=== PATIENT | female | born 1930 | race Caucasian/White ===

== ENCOUNTER 2019-07-08 17:25 | Emergency (ER) | payer MEDICARE, OTHER ==
[~2019-07-08] VITALS: Ht 172.7 cm; Wt 60.0 kg
[~2019-07-08 17:25] MED LIST: POTA20TA19 PO
[2019-07-08] MEDS ORDERED: ipratropium/albuterol 3ml nebule NEB ONE (17:55)
[2019-07-08] MEDS ORDERED: predniSONE 20 mg tablet PO ONE (17:55)
[2019-07-08 18:24] LABS: BASOPHILS % (AUTO) 0.4 % (0-1); EOSINOPHILS # (AUTO) 0.1 X10'3 (0-0.9); EOSINOPHILS % (AUTO) 1.6 % (0-6); HEMATOCRIT 37.6 % (35.0-45.0); HEMOGLOBIN 12.2 g/dl (12.0-16.0); LYMPHOCYTES # (AUTO) 0.9 X10'3 (1.1-4.8); LYMPHOCYTES % (AUTO) 10.8 % (21-51); MEAN CORPUSCULAR HEMOGLOBIN 30.7 PG (27.0-31.0); MEAN CORPUSCULAR HGB CONC 32.4 g/dL (33.0-36.5); MEAN CORPUSCULAR VOLUME 94.8 FL (78-98); MEAN PLATELET VOLUME 8.5 FL (7.4-10.4); MONOCYTES # (AUTO) 0.7 X10'3 (0-0.9); MONOCYTES % (AUTO) 8.3 % (2-12); NEUTROPHILS # (AUTO) 6.4 X10'3 (1.8-7.7); NEUTROPHILS % (AUTO) 78.9 % (42-75); PLATELET COUNT 290 X10'3 (140-440); RED BLOOD COUNT 3.97 X10'6 (4.20-5.60); RED CELL DISTRIBUTION WIDTH 13.5 % (11.5-14.5); WHITE BLOOD COUNT 8.2 X10'3 (4.5-11.0)
--- NOTE | 2019-07-08 18:25 | NUR ---
RECEIVED PT SITTING UP RIGHT, EKG COMPLETED. AWAITING BREATHING TREATMENT. O2 SATS AT 99 % ON 3 LITERS PER NC BREEATHING UNLABORED , LUNGS WITH BILATERAL RALES AND A PRODUCTIVE COUGH IS NOTED. RR 26 HR 85 BP 176/85 WILL CONTINUE TO MONITER . PLAN OF CARE UPDTED DAUGHTER AT THE BEDSIDE ATTENTIVE
[2019-07-08 18:37] LABS: ALANINE AMINOTRANSFERASE 18 U/L (12-78); ALBUMIN/GLOBULIN RATIO 0.6 (1.1-1.5); ALKALINE PHOSPHATASE 80 IU/L (46-116); ANION GAP 7 (8-16); ASPARTATE AMINO TRANSFERASE 22 U/L (10-37); BILIRUBIN,TOTAL 0.2 MG/DL (0.1-1.0); BLOOD UREA NITROGEN 15 MG/DL (7-18); BUN/CREATININE RATIO 17.6 (6.6-38.0); CALCIUM 9.4 MG/DL (8.5-10.1); CHLORIDE 101 MMOL/L (99-107); CREATININE 0.85 MG/DL (0.40-0.90); GLUCOSE 113 MG/DL (70-104); POTASSIUM 4.3 MMOL/L (3.5-5.1); SODIUM 139 MMOL/L (135-145); TOTAL CARBON DIOXIDE 30.9 MMOL/L (24-32); TOTAL PROTEIN 7.8 G/DL (6.4-8.2); eGFR 63 ML/MIN
[2019-07-08] MEDS ORDERED: azithromycin 250mg tablet PO ONE (18:40)
--- NOTE | 2019-07-08 18:48 | NUR ---
resp paged for tx
[2019-07-08] MEDS ORDERED: albuterol 2.5 MG/3 ML nebule CONTNEB PRN (19:00)
[2019-07-08] MEDS ORDERED: ipratropium 0.5 MG/2.5ML nebule IH ONE (19:00)
--- NOTE | 2019-07-08 19:06 | NUR ---
RESP TO TX PT WITH BREATHING TX
--- NOTE | 2019-07-08 19:24 | NUR ---
URINE SPECIMAN SENT TO LAB
--- NOTE | 2019-07-08 19:50 | NUR ---
PT STILL ON CONTINOUS MED ANNY TX ALL VSS STABLE CALLED LAB TO ADD TROPONIN
--- NOTE | 2019-07-08 19:52 | NUR ---
lab running troponin from previous draw
[2019-07-08 20:05] LABS: TROPONIN I < 0.04 NG/ML (0.0-0.05)
--- NOTE | 2019-07-08 20:42 | NUR ---
DR SESAY REQUESTED PT DO A WALK AROUND THE UNIT TO ASSESS SOB AND DIZZINESS. PT UP OUT OF BED WITH SLIPERS AND PORTABLE O2 AT 3 LITERS.
--- NOTE | 2019-07-08 20:49 | NUR ---
PT AMBULATED HALLWAY TO REGISTRATTION AND BACK UPON RETURN SHE WAS SATING 91 % OR HER 3 L OF O2 PER NC. PRIOR TO WALK AT REST PT WAS SATING 97-98 % . PT DID HAVE INCREASED WORK OF BREATHING . R5R TO 28 . PT STATED AT HOME SHE DOESNT HAVE TO WALK FAR DISTANCE OUR WALK TO REGISTRATION . PT STATES " THE WALK FELT GOOD, IT WAS NICE TO GET MY CIRCULATION GOING,"
[2019-07-08 20:52] VITALS: BP 137/81
[2019-07-08] MEDS ORDERED: AZIT-63 PO (20:59)
[2019-07-08] MEDS ORDERED: PRED20TA PO (20:59)
== END 2019-07-08 21:45 | disposition home or self-care (01) ==
LOC: ER 17:26
DX: J44.1 Chronic obstructive pulmonary disease with (acute) exacerbation (principal); R07.89 Other chest pain; I10 Essential (primary) hypertension; Z99.81 Dependence on supplemental oxygen; Z88.0 Allergy status to penicillin; Z79.899 Other long term (current) drug therapy; Z79.2 Long term (current) use of antibiotics
CPT/HCPCS: 36415; 71046; 80053; 83605; 84484; 85025; 93005; 94644; 94760; 99285; J7512; 94640

== ENCOUNTER 2019-09-07 18:44 | Inpatient (IN) | payer MEDICARE, OTHER ==
[~2019-09-07] VITALS: Ht 170.2 cm; Wt 57.8 kg
[2019-09-07 18:00] VITALS: BP 110/70
[~2019-09-07 18:44] MED LIST changes: +PRED20TA PO
[2019-09-07 20:00] LABS: BASOPHILS % (AUTO) 0.4 % (0-1); EOSINOPHILS # (AUTO) 0.2 X10'3 (0-0.9); EOSINOPHILS % (AUTO) 1.9 % (0-6); HEMATOCRIT 37.9 % (35.0-45.0); HEMOGLOBIN 12.5 g/dl (12.0-16.0); LYMPHOCYTES # (AUTO) 1.2 X10'3 (1.1-4.8); MEAN CORPUSCULAR HEMOGLOBIN 31.1 PG (27.0-31.0); MEAN CORPUSCULAR HGB CONC 32.9 g/dL (33.0-36.5); MEAN CORPUSCULAR VOLUME 94.4 FL (78-98); MEAN PLATELET VOLUME 8.6 FL (7.4-10.4); MONOCYTES # (AUTO) 0.7 X10'3 (0-0.9); NEUTROPHILS # (AUTO) 6.8 X10'3 (1.8-7.7); NEUTROPHILS % (AUTO) 76.7 % (42-75); PLATELET COUNT 265 X10'3 (140-440); RED BLOOD COUNT 4.02 X10'6 (4.20-5.60); RED CELL DISTRIBUTION WIDTH 14.2 % (11.5-14.5); WHITE BLOOD COUNT 8.9 X10'3 (4.5-11.0)
[2019-09-07 20:14] LABS: ALANINE AMINOTRANSFERASE 19 U/L (12-78); ALBUMIN/GLOBULIN RATIO 0.8 (1.1-1.5); ALKALINE PHOSPHATASE 71 IU/L (46-116); ANION GAP 5 (8-16); ASPARTATE AMINO TRANSFERASE 19 U/L (10-37); BILIRUBIN,TOTAL 0.2 MG/DL (0.1-1.0); BLOOD UREA NITROGEN 23 MG/DL (7-18); BUN/CREATININE RATIO 27.4 (6.6-38.0); CALCIUM 9.1 MG/DL (8.5-10.1); CHLORIDE 104 MMOL/L (99-107); CREATININE 0.84 MG/DL (0.40-0.90); GLUCOSE 131 MG/DL (70-104); POTASSIUM 4.7 MMOL/L (3.5-5.1); SODIUM 138 MMOL/L (135-145); TOTAL CARBON DIOXIDE 28.9 MMOL/L (24-32); TOTAL PROTEIN 6.9 G/DL (6.4-8.2); eGFR 64 ML/MIN
[2019-09-07] MEDS ORDERED: diltiazem 5mg/ml 5ml inj. IV ONE (20:15)
[2019-09-07] MEDS ORDERED: aspirin 325mg tablet PO ONE (20:15)
[2019-09-07] MEDS ORDERED: diltiazem-D5W 125mg/125ml 125 ML IV SCH (20:15)
[2019-09-07] MEDS ORDERED: normal saline 1000ml 1,000 ML IV ONE (20:30)
[2019-09-07] MEDS: diltiazem-NS 100mg/100ml 100 ML IV SCH (20:31)
[2019-09-07] MEDS ORDERED: TIOT18CA3 (21:06)
[2019-09-07] MEDS ORDERED: ADV50250 (21:06)
[2019-09-07] MEDS ORDERED: LOSA50TA64 (21:06)
[2019-09-07 22:00] VITALS: BP 112/74
[2019-09-08] VITALS (11 sets, daily range): BP systolic 102–152; BP diastolic 58–91
[2019-09-08] MEDS ORDERED: potassium Cl 20 mEq SR tablet PO PRN ×2 (01:50)
[2019-09-08] MEDS ORDERED: potassium CL 10mEq/100ml bag 100 ML IV PRN ×2 (01:50)
[2019-09-08] MEDS ORDERED: ipratropium/albuterol 3ml nebule NEB PRN ×2 (01:50)
[2019-09-08] MEDS ORDERED: ondansetron/PF 4mg/2ml inj IV PRN (01:50)
[2019-09-08] MEDS ORDERED: acetaminophen 325mg tablet PO PRN (01:50)
[2019-09-08] MEDS ORDERED: magnesium Cl slow-release 64mg tablet PO PRN (01:50)
[2019-09-08] MEDS ORDERED: magnesium 4gm in 100ml NS 100 ML IV PRN (01:50)
[2019-09-08] MEDS ORDERED: magnesium 2GM in 50ml NS 50 ML IV PRN (01:50)
--- NOTE | 2019-09-08 06:10 | NUR ---
Problems reprioritized. Patient report given, questions answered & plan of care reviewed with ANAND Haney.
--- NOTE | 2019-09-08 07:09 | NUR ---
Patient in room PCU 3012. I have received report from ANAND Cabrera and had the opportunity to ask questions and assume patient care. Pt resting with eyes closed, rouses upon entry in pt's room. RR WNL, even, unlabored. No signs of distress. Bed is low/locked/SRx2, call light in reach. Will continue to monitor.
--- NOTE | 2019-09-08 07:18 | NUR ---
Patient in room PCU 3012. I have received report from ANAND escalante and had the opportunity to ask questions and assume patient care.
--- NOTE | 2019-09-08 07:30 | NUR ---
Problems reprioritized. Patient report given, questions answered & plan of care reviewed with Hallie MICHEL.
[2019-09-08] MEDS ORDERED: heparin, porcine 5000 units/ml vial SQ SCH (08:00)
[2019-09-08] MEDS: K and/or MAG REPLACEMENT MC SCH ×2 (08:00→19:16)
[2019-09-08] MEDS: levoFLOXACIN-Levaquin 500mg/D5 100 ML IV SCH (08:08)
[2019-09-08] MEDS ORDERED: mag hydrox/Alum hydrox/simeth 30ml oral suspension PO ONE (08:30)
--- NOTE | 2019-09-08 08:33 | NUR ---
[id number] MESSAGE: Madeline Files RM 3010M c/o Chest Pain. STAT EKG ordered ANAND Sterling ext [phone]. phoned back and cancelled EKG, but its already in progress. Order for Maalox, Protonix, and Toradol inj.
[2019-09-08] MEDS ORDERED: ketorolac trometh. 30mg/ml inj. IM ONE (08:35)
[2019-09-08] MEDS: diltiazem-NS 100mg/100ml 100 ML IV SCH (13:09)
--- NOTE | 2019-09-08 14:54 | NUR ---
Malnutrition consult: Pt on heart healthy diet documented with 100% PO intake of protein at breakfast however 0% PO intake of the rest of the meal. Pt and son seen at bedside, pt reports a good appetite and both pt and son report that pt usually eats 3 small meals a day. Pt reports she ate just less than half of her lunch tray today. Pt reports UBW of 117-120 lbs with wt 3-4 lb wt loss. Patient's current scaled wt is 117 lbs which is 100% of reported UBW. No reliable wt hx in EMR as past documented weights are pt stated. Patient's clavicle is very prominent however pt reports this is normal for her. No other visible fat or muscle wasting noted. Pt with no documented significant decrease in muscle strength or edema. Pt currently does not meet criteria for malnutrition. Pt provided with alternative heart healthy menu to optimize PO intake as well as RD contact information. Pt denies food allergies or difficulty chewing/swallowing. Pt reports some constipation however denies intervention at this time. Pt reports hx diverticulitis/osis but denies questions for nutrition therapy at this time. Will continue to follow. Addendum: 09/08/19 at [address] Amended: Links added.
--- NOTE | 2019-09-08 16:21 | NUR ---
[id number] MESSAGE: Pharmacy requesting reconciliation of home meds of 3012B Rose Mary Sterling, RN [phone]
--- NOTE | 2019-09-08 18:27 | NUR ---
Problems reprioritized. Patient report given, questions answered & plan of care reviewed with ANAND Varela.
[2019-09-08] MEDS ORDERED: FLUTICASONE SCH (20:00)
[2019-09-08] MEDS ORDERED: SALMETEROL SCH (20:00)
[2019-09-08] MEDS: apixaban 5mg tablet PO SCH (20:13)
[2019-09-08] MEDS: diltiazem 30mg tablet PO SCH (20:13)
[2019-09-08] MEDS ORDERED: ipratropium 0.5 MG/2.5ML nebule IH SCH (21:00)
[2019-09-08] MEDS ORDERED: Melatonin 3mg tablet PO PRN (23:35)
[2019-09-08] MEDS: ipratropium/albuterol 3ml nebule IH SCH (23:53)
[2019-09-08] MEDS: budesonide 0.5mg/2ml UD nebule IH SCH (23:54)
[2019-09-09 02:30] VITALS: BP 114/80
[2019-09-09] MEDS: diltiazem 30mg tablet PO SCH ×2 (02:59→08:59)
[2019-09-09] MEDS: ipratropium/albuterol 3ml nebule IH SCH ×3 (03:00→15:11)
--- NOTE | 2019-09-09 06:15 | NUR ---
Patient in room PCU 3012. I have received report from ANAND Varela and had the opportunity to ask questions and assume patient care.
[2019-09-09 06:45] LABS: BASOPHILS % (AUTO) 0.6 % (0-1); EOSINOPHILS # (AUTO) 0.1 X10'3 (0-0.9); EOSINOPHILS % (AUTO) 2.4 % (0-6); HEMATOCRIT 35.4 % (35.0-45.0); HEMOGLOBIN 11.6 g/dl (12.0-16.0); LYMPHOCYTES # (AUTO) 1.1 X10'3 (1.1-4.8); LYMPHOCYTES % (AUTO) 17.6 % (21-51); MEAN CORPUSCULAR HGB CONC 32.8 g/dL (33.0-36.5); MEAN CORPUSCULAR VOLUME 94.6 FL (78-98); MEAN PLATELET VOLUME 8.4 FL (7.4-10.4); MONOCYTES # (AUTO) 0.5 X10'3 (0-0.9); MONOCYTES % (AUTO) 8.1 % (2-12); NEUTROPHILS # (AUTO) 4.5 X10'3 (1.8-7.7); NEUTROPHILS % (AUTO) 71.3 % (42-75); PLATELET COUNT 237 X10'3 (140-440); RED BLOOD COUNT 3.74 X10'6 (4.20-5.60); RED CELL DISTRIBUTION WIDTH 13.9 % (11.5-14.5); WHITE BLOOD COUNT 6.3 X10'3 (4.5-11.0)
[2019-09-09 06:53] LABS: ALBUMIN 2.6 G/DL (3.4-5.0); ANION GAP 2 (8-16); BLOOD UREA NITROGEN 17 MG/DL (7-18); BUN/CREATININE RATIO 17.7 (6.6-38.0); CALCIUM 8.8 MG/DL (8.5-10.1); CHLORIDE 107 MMOL/L (99-107); CREATININE 0.96 MG/DL (0.40-0.90); GLUCOSE 83 MG/DL (70-104); MAGNESIUM 2.4 MG/DL (1.5-2.4); POTASSIUM 4.4 MMOL/L (3.5-5.1); SODIUM 143 MMOL/L (135-145); TOTAL CARBON DIOXIDE 33.9 MMOL/L (24-32); eGFR 55 ML/MIN
[2019-09-09 07:00] VITALS: BP 116/64
[2019-09-09] MEDS ORDERED: pantoprazole 40mg Tablet.DR PO SCH (07:30)
[2019-09-09] MEDS: K and/or MAG REPLACEMENT MC SCH (08:00)
[2019-09-09] MEDS: budesonide 0.5mg/2ml UD nebule IH SCH (08:24)
[2019-09-09] MEDS: levoFLOXACIN-Levaquin 500mg/D5 100 ML IV SCH (08:59)
[2019-09-09] MEDS: apixaban 5mg tablet PO SCH (08:59)
[2019-09-09] MEDS ORDERED: diltiazem CD 120mg capsule (once-daily) PO SCH (09:15)
[2019-09-09 11:00] VITALS: BP 109/61
[2019-09-09] MEDS ORDERED: CARCD120C PO (13:26)
[2019-09-09] MEDS ORDERED: APIX5TAB3 PO (13:26)
[2019-09-09 15:00] VITALS: BP 113/57
--- NOTE | 2019-09-09 17:05 | NUR ---
Patient stable for discharge per MD. Discharge instruction given to patient and patients daughter. New medications faxed to [facility] in [place]. Tele monitor removed and returned to telemetry technician. PIC d/c'd, catheter intact. Patient instructed to call and follow up with Dr. Gutierrez in 2-3 weeks. Patient transported off unit via wheel chair to private vehicle.
[2019-09-10] MEDS ORDERED: levoFLOXACIN 500mg tablet PO SCH (11:00)
== END 2019-09-09 17:03 | disposition home or self-care (01) | DRG 309 ==
LOC: ER 18:44 → PCU 3S 21:29 → CMPBEDREQ 09-08 12:18
PROVIDERS: ADMIT Internal Medicine; ATTEND Family Medicine
DX: I48.91 Unspecified atrial fibrillation (principal); J96.10 Chronic respiratory failure, unspecified whether with hypoxia or hypercapnia; E86.0 Dehydration; J44.9 Chronic obstructive pulmonary disease, unspecified; I10 Essential (primary) hypertension; Z87.891 Personal history of nicotine dependence; Z98.82 Breast implant status; Z99.81 Dependence on supplemental oxygen; Z88.0 Allergy status to penicillin
CPT/HCPCS: 36415; 71045; 80048; 80053; 83735; 84484; 85025; 93005; 93306; 94640; 94760; 96361; 96374; 99285; G0378; J1644; J1885; J1956; J3490; J7626

== ENCOUNTER 2019-11-27 21:18 | Inpatient (IN) | payer MEDICARE, OTHER ==
[~2019-11-27] VITALS: Ht 172.7 cm; Wt 53.6 kg
[~2019-11-27 21:18] MED LIST changes: +ADV50250; +APIX5TAB3 PO; +CARCD120C PO; -POTA20TA19 PO; -PRED20TA PO; +TIOT18CA3
[2019-11-27] MEDS ORDERED: ipratropium/albuterol 3ml nebule NEB ONE (21:40)
[2019-11-27 21:48] LABS: BASOPHILS # (AUTO) 0.1 X10'3 (0-0.2); BASOPHILS % (AUTO) 0.8 % (0-1); EOSINOPHILS # (AUTO) 0.1 X10'3 (0-0.9); EOSINOPHILS % (AUTO) 0.6 % (0-6); HEMATOCRIT 39.3 % (35.0-45.0); HEMOGLOBIN 12.9 g/dl (12.0-16.0); LYMPHOCYTES # (AUTO) 0.8 X10'3 (1.1-4.8); LYMPHOCYTES % (AUTO) 6.3 % (21-51); MEAN CORPUSCULAR HGB CONC 32.8 g/dL (33.0-36.5); MEAN CORPUSCULAR VOLUME 91.3 FL (78-98); MEAN PLATELET VOLUME 8.2 FL (7.4-10.4); MONOCYTES # (AUTO) 0.8 X10'3 (0-0.9); MONOCYTES % (AUTO) 6.3 % (2-12); NEUTROPHILS # (AUTO) 10.6 X10'3 (1.8-7.7); PLATELET COUNT 299 X10'3 (140-440); RED BLOOD COUNT 4.31 X10'6 (4.20-5.60); RED CELL DISTRIBUTION WIDTH 14.4 % (11.5-14.5); WHITE BLOOD COUNT 12.3 X10'3 (4.5-11.0)
[2019-11-27 22:02] LABS: PARTIAL THROMBOPLASTIN TIME 31 SECONDS (22-32)
[2019-11-27 22:08] LABS: ALANINE AMINOTRANSFERASE 32 U/L (12-78); ALBUMIN 3.6 G/DL (3.4-5.0); ALBUMIN/GLOBULIN RATIO 0.8 (1.1-1.5); ALKALINE PHOSPHATASE 94 IU/L (46-116); ANION GAP 5 (8-16); ASPARTATE AMINO TRANSFERASE 35 U/L (10-37); BILIRUBIN,TOTAL 0.3 MG/DL (0.1-1.0); BLOOD UREA NITROGEN 22 MG/DL (7-18); BUN/CREATININE RATIO 24.2 (6.6-38.0); CALCIUM 9.7 MG/DL (8.5-10.1); CHLORIDE 101 MMOL/L (99-107); CREATININE 0.91 MG/DL (0.40-0.90); GLUCOSE 149 MG/DL (70-104); POTASSIUM 4.7 MMOL/L (3.5-5.1); SODIUM 136 MMOL/L (135-145); eGFR 58 ML/MIN
--- NOTE | 2019-11-27 22:16 | NUR ---
EDSC DEMARCUS MADE AWARE OF PT CONTINUED HR OF 120'S AND CHEST PRESSURE. NO NEW ORDERS AT THIS TIME.
[2019-11-27] MEDS ORDERED: diltiazem 5mg/ml 5ml inj. IV ONE ×2 (22:25→22:40)
[2019-11-27] MEDS ORDERED: diltiazem 30mg tablet PO ONE (22:40)
[2019-11-28] MEDS ORDERED: normal saline 1000ml 1,000 ML IV SCH (01:46)
--- NOTE | 2019-11-28 01:47 | NUR ---
PT STATES SHE NORMALLY WEARS 4L O2 AT HOME.
[2019-11-28] MEDS ORDERED: mag hydrox/Alum hydrox/simeth 30ml oral suspension PO PRN (01:50)
[2019-11-28] MEDS ORDERED: ondansetron/PF 4mg/2ml inj IV PRN (01:50)
[2019-11-28] MEDS ORDERED: acetaminophen 325mg tablet PO PRN (01:50)
[2019-11-28 02:35] VITALS: BP 151/93
[2019-11-28] MEDS: ipratropium/albuterol 3ml nebule NEB SCH ×4 (02:40→20:49)
--- NOTE | 2019-11-28 04:01 | NUR ---
Patient came to the unit at around 0230. Alert, oriented, x4. SOB, Respiratory therapist in the room for breathing treatment. Not complaining of any pain at this time.
[2019-11-28 06:00] VITALS: BP 148/67
--- NOTE | 2019-11-28 06:13 | NUR ---
Problems reprioritized. Patient report given Tonya, questions answered & plan of care reviewed with .
--- NOTE | 2019-11-28 06:36 | NUR ---
Patient in room PCU 3014P. I have received report from Leigh MICHEL and had the opportunity to ask questions and assume patient care. Patient laying in bed, awake, anxious, able to answer questions, states "I am trying to calm down", reassurance and guidance provided. Will continue to monitor.
[2019-11-28] MEDS: apixaban 5mg tablet PO SCH ×2 (07:20→19:57)
[2019-11-28] MEDS: budesonide 0.5mg/2ml UD nebule IH SCH ×2 (07:43→20:49)
[2019-11-28] MEDS ORDERED: diltiazem CD 120mg capsule (once-daily) PO SCH (08:00)
[2019-11-28 11:00] VITALS: BP 154/99
[2019-11-28] MEDS ORDERED: diltiazem CD 120mg capsule (once-daily) PO ONE (12:55)
[2019-11-28] MEDS: lactose-reduced food (Ensure Enlive) - 237ml bottle PO SCH ×2 (13:00→19:18)
[2019-11-28 15:00] VITALS: BP 105/58
[2019-11-28 18:00] VITALS: BP 99/79
--- NOTE | 2019-11-28 18:27 | NUR ---
Problems reprioritized. Patient report given, questions answered & plan of care reviewed with Ramona MICHEL.
[2019-11-28 22:00] VITALS: BP 115/67
[2019-11-29 01:52] VITALS: BP 115/64
[2019-11-29] MEDS: ipratropium/albuterol 3ml nebule NEB SCH ×4 (04:25→20:37)
[2019-11-29 06:00] VITALS: BP_SYST 106; BP_SYST 119; BP_DIAS 60; BP_DIAS 73
--- NOTE | 2019-11-29 06:06 | NUR ---
Problems reprioritized. Patient report given, questions answered & plan of care reviewed with Patricia Nix
[2019-11-29 06:26] LABS: BASOPHILS # (AUTO) 0.1 X10'3 (0-0.2); BASOPHILS % (AUTO) 0.6 % (0-1); EOSINOPHILS # (AUTO) 0.2 X10'3 (0-0.9); EOSINOPHILS % (AUTO) 2.2 % (0-6); HEMATOCRIT 33.3 % (35.0-45.0); HEMOGLOBIN 11.1 g/dl (12.0-16.0); LYMPHOCYTES # (AUTO) 0.8 X10'3 (1.1-4.8); LYMPHOCYTES % (AUTO) 8.7 % (21-51); MEAN CORPUSCULAR HEMOGLOBIN 30.4 PG (27.0-31.0); MEAN CORPUSCULAR HGB CONC 33.4 g/dL (33.0-36.5); MEAN PLATELET VOLUME 8.6 FL (7.4-10.4); MONOCYTES # (AUTO) 0.7 X10'3 (0-0.9); MONOCYTES % (AUTO) 8.5 % (2-12); PLATELET COUNT 228 X10'3 (140-440); RED BLOOD COUNT 3.66 X10'6 (4.20-5.60); RED CELL DISTRIBUTION WIDTH 14.1 % (11.5-14.5); WHITE BLOOD COUNT 8.8 X10'3 (4.5-11.0)
--- NOTE | 2019-11-29 06:29 | NUR ---
Patient in room PCU 3018S. I have received report from Ramona MICHEL and had the opportunity to ask questions and assume patient care. Patient laying in bed, eyes closed, no signs of distress, will continue to monitor.
[2019-11-29 06:54] LABS: ALANINE AMINOTRANSFERASE 21 U/L (12-78); ALBUMIN 2.6 G/DL (3.4-5.0); ALBUMIN/GLOBULIN RATIO 0.7 (1.1-1.5); ALKALINE PHOSPHATASE 64 IU/L (46-116); ANION GAP 4 (8-16); ASPARTATE AMINO TRANSFERASE 23 U/L (10-37); BILIRUBIN,TOTAL 0.3 MG/DL (0.1-1.0); BLOOD UREA NITROGEN 17 MG/DL (7-18); BUN/CREATININE RATIO 20.5 (6.6-38.0); CALCIUM 9.2 MG/DL (8.5-10.1); CHLORIDE 106 MMOL/L (99-107); CHOL/HDL RATIO 2.4 (0.00-4.99); CHOLESTEROL 173 MG/DL (0-200); CREATININE 0.83 MG/DL (0.40-0.90); GLUCOSE 87 MG/DL (70-104); HDL CHOLESTEROL 73 MG/DL (35-60); LDL CHOLESTEROL 89 MG/DL (50-100); POTASSIUM 3.9 MMOL/L (3.5-5.1); SODIUM 142 MMOL/L (135-145); TOTAL CARBON DIOXIDE 32.5 MMOL/L (24-32); TOTAL PROTEIN 6.2 G/DL (6.4-8.2); TRIGLYCERIDES 43 MG/DL (20-135); eGFR 65 ML/MIN
[2019-11-29] MEDS: budesonide 0.5mg/2ml UD nebule IH SCH ×2 (07:42→20:37)
[2019-11-29] MEDS: magnesium hydroxide 30ml (MOM) UD suspension PO PRN (08:01)
[2019-11-29] MEDS: atorvastatin 10mg tablet PO SCH (08:01)
[2019-11-29] MEDS: aspirin 81mg tablet.DR PO SCH (08:02)
[2019-11-29] MEDS: diltiazem CD 120mg capsule (once-daily) PO SCH (08:02)
[2019-11-29] MEDS: lactose-reduced food (Ensure Enlive) - 237ml bottle PO SCH ×3 (08:02→19:00)
[2019-11-29] MEDS: apixaban 5mg tablet PO SCH ×2 (08:02→20:54)
--- NOTE | 2019-11-29 08:08 | NUR ---
I have reviewed and agree with all medications administered and interventions performed by [facility] Student(kaylan dan) Addendum: 11/29/19 at 0808 by Ce Rosales RT Amended: Links added.
[2019-11-29 11:00] VITALS: BP 119/70
--- NOTE | 2019-11-29 13:15 | NUR ---
PAGER ID: [phone] MESSAGE: Patricia x [phone]. RE [address] Fra[address] 3016B. Patient requesting Miralax for constipation, can I have an order for this? Thank you!
[2019-11-29 15:00] VITALS: BP 116/67
[2019-11-29 18:00] VITALS: BP 140/71
--- NOTE | 2019-11-29 18:19 | NUR ---
Problems reprioritized. Patient report given, questions answered & plan of care reviewed with Jennifer MICHEL.
--- NOTE | 2019-11-29 18:30 | NUR ---
Patient in room PCU 3016. I have received report from Patricia Nix RN and had the opportunity to ask questions and assume patient care.
[2019-11-29] MEDS: polyethylene glycol 3350 17gm powd pack PO SCH (20:54)
[2019-11-29 22:00] VITALS: BP 115/61
[2019-11-30 02:00] VITALS: BP 121/71
[2019-11-30] MEDS: ipratropium/albuterol 3ml nebule NEB SCH ×4 (02:29→21:44)
[2019-11-30 06:00] VITALS: BP 111/59
--- NOTE | 2019-11-30 06:15 | NUR ---
Problems reprioritized. Patient report given, questions answered & plan of care reviewed with Ptaricia Nix RN.
--- NOTE | 2019-11-30 06:36 | NUR ---
Patient in room PCU 3010Q. I have received report from Jennifer MICHEL and had the opportunity to ask questions and assume patient care.
[2019-11-30 07:01] LABS: BASOPHILS % (AUTO) 0.5 % (0-1); EOSINOPHILS # (AUTO) 0.2 X10'3 (0-0.9); EOSINOPHILS % (AUTO) 3.4 % (0-6); HEMATOCRIT 34.3 % (35.0-45.0); HEMOGLOBIN 11.3 g/dl (12.0-16.0); LYMPHOCYTES # (AUTO) 0.9 X10'3 (1.1-4.8); LYMPHOCYTES % (AUTO) 12.5 % (21-51); MEAN CORPUSCULAR HEMOGLOBIN 30.2 PG (27.0-31.0); MEAN CORPUSCULAR VOLUME 91.5 FL (78-98); MEAN PLATELET VOLUME 8.4 FL (7.4-10.4); MONOCYTES # (AUTO) 0.7 X10'3 (0-0.9); MONOCYTES % (AUTO) 10.5 % (2-12); NEUTROPHILS % (AUTO) 73.1 % (42-75); PLATELET COUNT 242 X10'3 (140-440); RED BLOOD COUNT 3.75 X10'6 (4.20-5.60); RED CELL DISTRIBUTION WIDTH 14.3 % (11.5-14.5); WHITE BLOOD COUNT 6.8 X10'3 (4.5-11.0)
[2019-11-30 07:05] LABS: ALANINE AMINOTRANSFERASE 21 U/L (12-78); ALBUMIN 2.7 G/DL (3.4-5.0); ALBUMIN/GLOBULIN RATIO 0.7 (1.1-1.5); ALKALINE PHOSPHATASE 72 IU/L (46-116); ANION GAP 4 (8-16); ASPARTATE AMINO TRANSFERASE 22 U/L (10-37); BILIRUBIN,TOTAL 0.3 MG/DL (0.1-1.0); BLOOD UREA NITROGEN 18 MG/DL (7-18); BUN/CREATININE RATIO 20.9 (6.6-38.0); CALCIUM 9.1 MG/DL (8.5-10.1); CHLORIDE 104 MMOL/L (99-107); CREATININE 0.86 MG/DL (0.40-0.90); GLUCOSE 95 MG/DL (70-104); POTASSIUM 4.1 MMOL/L (3.5-5.1); SODIUM 142 MMOL/L (135-145); TOTAL PROTEIN 6.4 G/DL (6.4-8.2); eGFR 62 ML/MIN
[2019-11-30] MEDS: budesonide 0.5mg/2ml UD nebule IH SCH ×2 (07:41→21:44)
[2019-11-30] MEDS: magnesium hydroxide 30ml (MOM) UD suspension PO PRN (08:56)
[2019-11-30] MEDS: diltiazem CD 120mg capsule (once-daily) PO SCH (08:57)
[2019-11-30] MEDS: aspirin 81mg tablet.DR PO SCH (08:57)
[2019-11-30] MEDS: atorvastatin 10mg tablet PO SCH (08:57)
[2019-11-30] MEDS: apixaban 5mg tablet PO SCH ×2 (08:57→20:56)
[2019-11-30] MEDS: lactose-reduced food (Ensure Enlive) - 237ml bottle PO SCH ×3 (08:59→18:47)
[2019-11-30 11:00] VITALS: BP 131/72
[2019-11-30 15:00] VITALS: BP 125/68
--- NOTE | 2019-11-30 15:39 | NUR ---
PAGER ID: [phone] MESSAGE: Patricia paul [phone]. Paras Frausto [id number]. Pt IV went bad. Does not have any running IV meds. May d/c to rehab tomorrow. Okay to not have an IV?
--- NOTE | 2019-11-30 17:00 | NUR ---
Per Dr. MARIZA boyd to not have PIV, gave order for Lasix 20mg PO BID.
--- NOTE | 2019-11-30 18:30 | NUR ---
went into patient room at shift change, patient complains of upper abdominal/epigastric spasm after eating food. Relaxation encouraged, no respiratory distress, speaking in full sentences, anxious. Guidance and reassurance provided, reported to Caroline MICHEL
--- NOTE | 2019-11-30 18:30 | NUR ---
Patient in room PCU 3016. I have received report from ANAND Gomez and had the opportunity to ask questions and assume patient care.
--- NOTE | 2019-11-30 18:31 | NUR ---
Problems reprioritized. Patient report given, questions answered & plan of care reviewed with Caroline MICHEL.
[2019-11-30 19:00] VITALS: BP 124/59
[2019-11-30] MEDS: furosemide 20MG tablet PO SCH (20:56)
[2019-11-30] MEDS: polyethylene glycol 3350 17gm powd pack PO SCH (21:00)
[2019-11-30] MEDS ORDERED: LORazepam 1 MG tablet PO ONE (21:20)
[2019-11-30] MEDS ORDERED: pantoprazole 40mg Tablet.DR PO ONE (21:20)
[2019-11-30] MEDS ORDERED: HYDROcodone/acetaminophen 5mg/325mg tablet PO ONE (22:40)
[2019-11-30 23:00] VITALS: BP 144/82
[2019-12-01 03:00] VITALS: BP 125/72
[2019-12-01] MEDS: ipratropium/albuterol 3ml nebule NEB SCH ×3 (03:00→14:43)
[2019-12-01 06:00] VITALS: BP 147/92
[2019-12-01 06:09] LABS: BASOPHILS % (AUTO) 0.6 % (0-1); EOSINOPHILS # (AUTO) 0.1 X10'3 (0-0.9); EOSINOPHILS % (AUTO) 1.1 % (0-6); HEMATOCRIT 35.8 % (35.0-45.0); HEMOGLOBIN 11.7 g/dl (12.0-16.0); LYMPHOCYTES # (AUTO) 0.7 X10'3 (1.1-4.8); MEAN CORPUSCULAR HGB CONC 32.8 g/dL (33.0-36.5); MEAN CORPUSCULAR VOLUME 91.4 FL (78-98); MEAN PLATELET VOLUME 8.5 FL (7.4-10.4); MONOCYTES # (AUTO) 0.6 X10'3 (0-0.9); MONOCYTES % (AUTO) 7.8 % (2-12); NEUTROPHILS # (AUTO) 6.8 X10'3 (1.8-7.7); NEUTROPHILS % (AUTO) 82.5 % (42-75); PLATELET COUNT 253 X10'3 (140-440); RED BLOOD COUNT 3.91 X10'6 (4.20-5.60); RED CELL DISTRIBUTION WIDTH 14.3 % (11.5-14.5); WHITE BLOOD COUNT 8.3 X10'3 (4.5-11.0)
[2019-12-01 06:21] LABS: ALANINE AMINOTRANSFERASE 21 U/L (12-78); ALBUMIN 2.7 G/DL (3.4-5.0); ALBUMIN/GLOBULIN RATIO 0.7 (1.1-1.5); ALKALINE PHOSPHATASE 71 IU/L (46-116); ANION GAP 3 (8-16); ASPARTATE AMINO TRANSFERASE 21 U/L (10-37); BILIRUBIN,TOTAL 0.2 MG/DL (0.1-1.0); BLOOD UREA NITROGEN 23 MG/DL (7-18); BUN/CREATININE RATIO 24.2 (6.6-38.0); CHLORIDE 105 MMOL/L (99-107); CREATININE 0.95 MG/DL (0.40-0.90); GLUCOSE 119 MG/DL (70-104); SODIUM 144 MMOL/L (135-145); TOTAL CARBON DIOXIDE 36.1 MMOL/L (24-32); TOTAL PROTEIN 6.5 G/DL (6.4-8.2); eGFR 56 ML/MIN
--- NOTE | 2019-12-01 06:23 | NUR ---
Problems reprioritized. Patient report given, questions answered & plan of care reviewed with ANAND Pettit.
--- NOTE | 2019-12-01 06:24 | NUR ---
Patient in room PCU 3016. I have received report from Caroline MICHEL and had the opportunity to ask questions and assume patient care.
[2019-12-01] MEDS: budesonide 0.5mg/2ml UD nebule IH SCH (07:00)
[2019-12-01] MEDS: lactose-reduced food (Ensure Enlive) - 237ml bottle PO SCH ×2 (08:00→13:43)
[2019-12-01] MEDS: aspirin 81mg tablet.DR PO SCH (08:45)
[2019-12-01] MEDS: apixaban 5mg tablet PO SCH (08:45)
[2019-12-01] MEDS: furosemide 20MG tablet PO SCH (08:46)
[2019-12-01] MEDS: atorvastatin 10mg tablet PO SCH (08:48)
[2019-12-01] MEDS: diltiazem CD 120mg capsule (once-daily) PO SCH (08:57)
[2019-12-01 11:00] VITALS: BP 115/68
[2019-12-01] MEDS: sucralfate 1 gm tablet PO SCH ×2 (13:41→17:10)
[2019-12-01 15:00] VITALS: BP 127/74
--- NOTE | 2019-12-01 16:21 | NUR ---
Problems reprioritized. Patient report given, questions answered & plan of care reviewed with Rhona Bolanos Nurse.
--- NOTE | 2019-12-01 18:25 | NUR ---
Per MD orders, patient stable for transfer to [facility]. Report called in to Rhona [facility] nurse. No PIV to discontinue. Discontinued tele monitoring. Discharge packet given to [facility]ек[facility] [employer] staff. Transferred to [facility] via wheelchair accompanied [facility] personnel.
== END 2019-12-01 18:07 | DRG 280 ==
LOC: ER 21:19 → ED HOLD 11-28 01:46 → EDBEDREQ 11-28 02:01 → PCU 3S 11-28 02:22
PROVIDERS: ADMIT Internal Medicine; ATTEND Internal Medicine
DX: I21.4 Non-ST elevation (NSTEMI) myocardial infarction (principal); I26.09 Other pulmonary embolism with acute cor pulmonale; J96.21 Acute and chronic respiratory failure with hypoxia; I48.21 Permanent atrial fibrillation; J44.1 Chronic obstructive pulmonary disease with (acute) exacerbation; I50.813 Acute on chronic right heart failure; I27.20 Pulmonary hypertension, unspecified; I11.0 Hypertensive heart disease with heart failure; K59.00 Constipation, unspecified; Z66 Do not resuscitate; I35.0 Nonrheumatic aortic (valve) stenosis; I73.9 Peripheral vascular disease, unspecified; I71.4 Abdominal aortic aneurysm, without rupture; Z88.0 Allergy status to penicillin; Z79.01 Long term (current) use of anticoagulants; Z79.82 Long term (current) use of aspirin; Z79.899 Other long term (current) drug therapy; Z86.79 Personal history of other diseases of the circulatory system; Z98.82 Breast implant status; Z99.81 Dependence on supplemental oxygen
CPT/HCPCS: 36415; 71045; 80053; 80061; 84484; 85025; 85610; 85730; 87081; 93005; 93306; 94640; 94760; 96374; 96376; 97110; 97116; 97162; 99285; G0378; J3490; J7030; J7626